=== PATIENT | female | born 2000 | race Caucasian/White ===

== ENCOUNTER → 2022-08-28 16:33 | Outpatient (CLI) | payer OTHER, SELFPAY ==
--- NOTE | ~2022-08-28 | XR_ITS ---
EXAMINATION: XR ankle RT min 3V DATE: 08/28/2022 16:52 INDICATION: Right ankle sprain. TECHNIQUE: 4 views of right ankle were obtained. COMPARISON: None. FINDINGS: Bone alignment is normal. 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 IMPRESSION: 1. 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 Foot radiographs are recommended. Reviewed, dictated and finalized at location A. [employer] IMPRESSION: 1. 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 Foot radiographs are recommended.
== END ==
PROVIDERS: PCP Physician Assistant; Visit Provider Internal Medicine
DX: S93.401A Sprain of unspecified ligament of right ankle, initial encounter (principal); X58.XXXA Exposure to other specified factors, initial encounter
CPT/HCPCS: 73610